=== PATIENT | female | born 1970 | race Caucasian/White ===

== ENCOUNTER 2017-01-10 17:07 | Emergency (ER) | payer MEDICAID ==
[2017-01-10 17:14] VITALS: BMI 35.2
[2017-01-10 17:18] VITALS: TEMP 98.2
--- NOTE | 2017-01-10 17:26 | ED PDOC ---
Arrival/HPI - General Chief Complaint: Trauma Time Seen by Provider: 01/10/17 17:19 Historian: Patient - History of Present Illness Narrative History of Present Illness (Text): 01/10/17 17:23 46 y/o female, no pmh, nkda, not on any antiplatete or anticoagulant, c/o rt. sided frontal forehead injury x 1 hour. Pt. stated that she was climbing on the stair about 3-4 feets tall, slipped off the stair, hit the rt. frontal forehead against the wall, no neck/back/extremities pain, able to recall the whole event with no LOC, no nausea or vomiting, no dizziness, no change in vision, no other medical or psychological complaints. Past Medical History - Provider Review Nursing Documentation Reviewed: Yes - Infectious Disease Hx of Infectious Diseases: None - Psychiatric Hx Substance Use: No - Anesthesia Hx Anesthesia: No Family/Social History - Physician Review Nursing Documentation Reviewed: Yes Family/Social History: Unknown Family HX Smoking Status: Never Smoked Hx Alcohol Use: No Hx Substance Use: No Allergies/Home Meds Allergies/Adverse Reactions: Allergies No Known Allergies Allergy (Verified 01/10/17 17:14) Review of Systems - Review of Systems Constitutional: absent: Fatigue, Fevers Eyes: absent: Vision Changes, Photophobia ENT: absent: Hearing Changes Respiratory: absent: SOB, Cough Cardiovascular: absent: Chest Pain Gastrointestinal: absent: Abdominal Pain, Diarrhea, Nausea, Vomiting Musculoskeletal: absent: Arthralgias, Back Pain, Neck Pain Skin: absent: Rash Neurological: Headache. absent: Dizziness, Focal Weakness, Gait Changes, Speech Changes, Disequilibrium Physical Exam Vital Signs Reviewed: Yes Vital Signs Temp Pulse Resp BP Pulse Ox 01/10/17 17:22 133/88 01/10/17 17:16 98.2 F 88 19 82/55 L 97 Temperature: Afebrile Pulse: Regular Respiratory Rate: Normal Appearance: Positive for: Well-Appearing, Non-Toxic, Comfortable Pain Distress: Mild Mental Status: Positive for: Alert and Oriented X 3 - Systems Exam Head: Present: Tenderness, Contusion, Swelling, Ecchymosis, Other (+ttp and swelling noted on the rt. frontal lateral forehead region with skin intact, no laceratio or abrasion, no temporal artery tenderness. ). No: Abrasion, Laceration Pupils: Present: PERRL Extroacular Muscles: Present: EOMI Conjunctiva: Present: Normal Ears: Present: NORMAL TM, Normal Canal. No: Erythema Mouth: Present: Moist Mucous Membranes Nose (External): Present: Atraumatic. No: Abrasion, Contusion, Laceration, Lesions Neck: Present: Normal Range of Motion, Trachea Midline. No: MIDLINE TENDERNESS , Paraspinal Tenderness Respiratory/Chest: Present: Clear to Auscultation, Good Air Exchange. No: Respiratory Distress, Accessory Muscle Use, Wheezes, Decreased Breath Sounds, Rales, Retracting, Rhonchi, Tachypneic, Tender to Palpation, Other Cardiovascular: Present: Regular Rate and Rhythm, Normal S1, S2. No: Murmurs Abdomen: Present: Normal Bowel Sounds. No: Tenderness, Distention, Peritoneal Signs, Rebound, Guarding Back: Present: Normal Inspection. No: CVA Tenderness, Midline Tenderness, Paraspinal Tenderness Upper Extremity: Present: Normal Inspection, Normal ROM. No: Cyanosis, Edema, Deformity Lower Extremity: Present: Normal Inspection, Normal ROM. No: Edema, Deformity Neurological: Present: GCS=15, Speech Normal, Motor Func Grossly Intact, Gait Normal, Memory Normal Skin: Present: Warm, Dry, Normal Color. No: Rashes Psychiatric: Present: Alert, Oriented x 3, Normal Insight, Normal Concentration Medical Decision Making ED Course and Treatment: 01/10/17 17:27 -CT head -tylenol -observe and reassess 01/10/17 18:26 -Urine hcg negative -CT head show no intracranial findings but there is scalp hematoma. -Headache decreased and feeling better, will discharge home. -Discharge home with motrin, bed rest, stay hydrated, ice compression, follow up with your own pmd and neurologist within 2 days, return to the ER for any new or worsening signs or symptoms. - RAD Interpretation Radiology Orders: 01/10/17 17:22 HEAD W/O CONTRAST [CT] Stat PROCEDURE: CT HEAD WITHOUT CONTRAST. HISTORY: fall, hit the rt. frontal forehead against the wal COMPARISON: None available. TECHNIQUE: Axial computed tomography images were obtained through the head/brain without intravenous contrast. Radiation dose: Total exam DLP = 774.23 mGy-cm. This CT exam was performed using one or more of the following dose reduction techniques: Automated exposure control, adjustment of the mA and/or kV according to patient size, and/or use of iterative reconstruction technique. FINDINGS: HEMORRHAGE: No intracranial hemorrhage. BRAIN: No mass effect or edema. No atrophy or chronic microvascular ischemic changes. VENTRICLES: Unremarkable. No hydrocephalus. CALVARIUM: No calvarial fracture. Small right frontal scalp hematoma. PARANASAL SINUSES: Unremarkable as visualized. No significant inflammatory changes. MASTOID AIR CELLS: Unremarkable as visualized. No inflammatory changes. OTHER FINDINGS: None. IMPRESSION: No intracranial hemorrhage. Small right frontal scalp hematoma. Otherwise unremarkable. Laminating Machine Tender: Radiologist - Medication Orders Current Medication Orders: Discontinued Medications Acetaminophen (Tylenol 325mg Tab) 650 mg PO STAT STA Stop: 01/10/17 17:23 Last Admin: 01/10/17 18:20 Dose: 650 mg - PA / MARKETING SPECIALIST / Resident Statement MD/DO has reviewed & agrees with the documentation as recorded. Disposition/Present on Arrival - Present on Arrival Any Indicators Present on Arrival: No History of DVT/PE: No History of Uncontrolled Diabetes: No Urinary Catheter: No History of Decub. Ulcer: No History Surgical Site Infection Following: None - Disposition Have Diagnosis and Disposition been Completed?: Yes Diagnosis: Head contusion, Head injury, closed, without LOC Disposition: HOME/ ROUTINE Disposition Time: 18:27 Patient Plan: Discharge Patient Problems: Current Active Problems Problem Status Onset Head contusion Acute Head injury, closed, without LOC Acute Condition: IMPROVED Additional Instructions: Discharge home with motrin, bed rest, stay hydrated, ice compression, follow up with your own pmd and neurologist within 2 days, return to the ER for any new or worsening signs or symptoms. Prescriptions: RX: Ibuprofen [Motrin Tab] 600 mg PO QID PRN #24 tab PRN Reason: Other Referrals: Valarie Santa MD [Primary Care Provider] - Follow up with primary Santiago Oro MD [Staff Provider] - Follow up with primary Forms: WORK NOTE
--- NOTE | 2017-01-10 18:24 | CT ---
PROCEDURE: CT HEAD WITHOUT CONTRAST. HISTORY: fall, hit the rt. frontal forehead against the wal COMPARISON: None available. TECHNIQUE: Axial computed tomography images were obtained through the head/brain without intravenous contrast. Radiation dose: Total exam DLP = 774.23 mGy-cm. This CT exam was performed using one or more of the following dose reduction techniques: Automated exposure control, adjustment of the mA and/or kV according to patient size, and/or use of iterative reconstruction technique. FINDINGS: HEMORRHAGE: No intracranial hemorrhage. BRAIN: No mass effect or edema. No atrophy or chronic microvascular ischemic changes. VENTRICLES: Unremarkable. No hydrocephalus. CALVARIUM: No calvarial fracture. Small right frontal scalp hematoma. PARANASAL SINUSES: Unremarkable as visualized. No significant inflammatory changes. MASTOID AIR CELLS: Unremarkable as visualized. No inflammatory changes. OTHER FINDINGS: None. IMPRESSION: No intracranial hemorrhage. Small right frontal scalp hematoma. Otherwise unremarkable.
[2017-01-10 19:16] VITALS: BP 127/84; PULSE 71; RESP 18; O2SAT 98
== END 2017-01-10 19:15 | disposition home or self-care (01) ==
LOC: ED 17:07
DX: S00.93XA Contusion of unspecified part of head, initial encounter (principal); W10.9XXA Fall (on) (from) unspecified stairs and steps, initial encounter

== ENCOUNTER 2017-07-13 08:29 | Day surgery (SDC) | payer MEDICAID ==
[2017-07-05 09:09] VITALS: BMI 29.9
[2017-07-13] MEDS ORDERED: Sodium Chloride 0.9% 1,000 ML IV SCH (09:00)
[2017-07-13] MEDS ORDERED: Lidocaine 1% Inj (20ml) ONE ×2 (10:39→10:49)
[2017-07-13] MEDS ORDERED: Propofol 10 mg/ml Inj (20 ML) ONE (10:49)
[2017-07-13 11:15] VITALS: TEMP 98.2; O2SAT 100
[2017-07-13 11:22] VITALS: RESP 16
[2017-07-13 11:28] VITALS: PULSE 73
[2017-07-13 12:19] VITALS: BP 117/74
== END 2017-07-13 12:12 | disposition home or self-care (01) ==
LOC: ENDO 08:29
PROVIDERS: ATTEND Internal Medicine
DX: K21.0 Gastro-esophageal reflux disease with esophagitis (principal); K29.50 Unspecified chronic gastritis without bleeding
CPT/HCPCS: 43239; 88305; 88342; J2704; J7040 ×2